=== PATIENT | female | born 1955 | race Two or more races ===

== ENCOUNTER 2022-01-05 11:13 | Emergency (ER) | payer OTHER ==
[~2022-01-05] VITALS: Ht 165.1 cm; Wt 113.4 kg
== END 2022-01-05 14:52 | disposition home or self-care (01) ==
LOC: ER 11:13
DX: S00.33XA Contusion of nose, initial encounter (principal); W01.0XXA Fall on same level from slipping, tripping and stumbling without subsequent striking against object, initial encounter; Y92.018 Other place in single-family (private) house as the place of occurrence of the external cause